=== PATIENT | female | born 1980 | race Caucasian/White ===

== ENCOUNTER 2016-12-05 06:43 | Outpatient (CLI) | payer OTHER ==
[~2016-12-05] VITALS: Ht 160 cm; Wt 70.0 kg
[~2016-12-05 06:43] MED LIST: APRI 0.15 MG-0.1 TAB PO; CEFTIN500 MG PO; FLOMAX 0.40.4 MG/CAP PO; MOTRIN 600600 MG/TAB PO; NORCO 325 MG-51 TAB PO; PHENERGAN 25 TA25 MG PO; PRENATAL1 TA2 PO; PROZAC20 MG PO
[2016-12-05 07:16] VITALS: TEMP 98.1
[2016-12-05 07:30] VITALS: BP 103/69; PULSE 96
[2016-12-05 08:30] VITALS: BP 99/58; PULSE 96
== END 2016-12-05 08:45 | disposition home or self-care (01) ==
LOC: LDRO 06:43
DX: O32.1XX0 Maternal care for breech presentation, not applicable or unspecified (principal); Z3A.37 37 weeks gestation of pregnancy
CPT/HCPCS: J3105

== ENCOUNTER 2016-12-05 06:47 | Inpatient (IN) | payer OTHER ==
[~2016-12-05] VITALS: Ht 157.5 cm; Wt 71.4 kg
[2017-01-01] VITALS (39 sets, daily range): BP systolic 98–140; BP diastolic 47–97; PULSE 68–113; TEMP 97.6–98.3
[2017-01-01] MEDS ORDERED: NATURAL IRON65 MG PO (07:29)
[2017-01-01 08:26] LABS: BASO % 0.3 % (0.0-2.0); EOS # 0.1 (0.0-0.7); EOS % 1.4 % (0-4.0); GRAN # 5.9 (1.4-6.5); GRAN % 76.2 % (42.2-75.2); MEAN CELL VOLUME 99 fl (80.0-100.0); MEAN CORPUSCULAR HGB CONC 34 g/dl (33.0-37.0); MEAN PLATELET VOLUME 10.4 fl (7.4-10.4); MONO # 0.6 (0.1-0.6); MONO % 8.1 % (1.7-9.3); PLATELET COUNT 168 K/mm3 (130-400); RED BLOOD COUNT 3.43 M/mm3 (4.10-5.30); REDCELL DISTRIBUTION WIDTH-CV 13.6 % (11.5-14.5); WHITE BLOOD COUNT 7.7 K/mm3 (4.8-10.8)
[2017-01-01 08:27] LABS: HEMATOCRIT 34.1 % (37.0-47.0); HEMOGLOBIN 11.6 g/dl (12.5-16.0); MEAN CORPUSCULAR HEMOGLOBIN 34 pg (27.0-31.0)
[2017-01-02] MEDS ORDERED: IBU800 M1 PO (09:02)
[2017-01-02] MEDS ORDERED: PERCOCET 325 MG1 TA2 PO (09:02)
[2017-01-02 09:04] VITALS: BP 110/76; PULSE 88; TEMP 98.3
[2017-01-02 16:12] VITALS: BP 110/71; PULSE 76; TEMP 98.1
[2017-01-02 20:46] VITALS: BP 109/71; PULSE 78; TEMP 98.1
[2017-01-03 09:30] VITALS: BP 104/64; PULSE 86; TEMP 98.5
== END 2017-01-03 12:10 | disposition home or self-care (01) | DRG 775 ==
LOC: LDRO 06:47 → EDSTATUS 09:10 → LDR 01-01 06:48 → OB 01-01 19:00
PROVIDERS: Obstetrics & Gynecology
PROC: 10E0XZZ Delivery of Products of Conception, External Approach (ICD-10-PCS; principal; 2017-01-01)
PROC: 3E033VJ Introduction of Other Hormone into Peripheral Vein, Percutaneous Approach (ICD-10-PCS; 2017-01-01)
DX: O48.0 Post-term pregnancy (principal); O99.824 Streptococcus B carrier state complicating childbirth; Z3A.40 40 weeks gestation of pregnancy; Z37.0 Single live birth
CPT/HCPCS: J2540; J2590; J7120

== ENCOUNTER → 2017-01-09 | Outpatient (CLI) | payer OTHER ==
[~2017-01-09] MED LIST changes: +IBU800 M1 PO; +NATURAL IRON65 MG PO; +PERCOCET 325 MG1 TA2 PO
== END ==
LOC: LAC 13:41
DX: N64.59 Other signs and symptoms in breast (principal)

== ENCOUNTER → 2017-01-28 | Outpatient (CLI) | payer OTHER | LOC: OLC 15:02 | DX: Z39.1 Encounter for care and examination of lactating mother (principal); Z71.89 Other specified counseling ==

== ENCOUNTER → 2019-03-09 | Outpatient (CLI) | payer BC | LOC: COL.RAD 08:15 | DX: R10.11 Right upper quadrant pain (principal) ==